=== PATIENT | female | born 1960 | race Caucasian/White ===

== ENCOUNTER → 2023-05-15 19:09 | Outpatient (REF) | payer MEDICARE, OTHER, SELFPAY | LOC: WDC 19:09 | PROVIDERS: ATTENDING PHYSICIAN Family Medicine | DX: Z12.31 Encounter for screening mammogram for malignant neoplasm of breast (principal) | CPT/HCPCS: 77063; 77067 ==

== ENCOUNTER 2023-11-23 14:45 | Emergency (ER) | payer MEDICARE, OTHER, SELFPAY ==
[2023-11-23 15:10] VITALS: BP 134/71
[2023-11-23 17:39] LABS: % Basophils 0.6 % (0-2); % Eosinophils 4.3 % (0-6); % Immature Granulocytes 0.2 % (0-0.5); % Lymphocytes 24.6 % (20.5-51.1); % Monocytes 5.3 % (1.7-9.3); Absolute Basophils 0.1 10^3/uL (0-0.2); Absolute Eosinophils 0.4 10^3/uL (0-0.7); Absolute Lymphocytes 2.3 10^3/uL (1.2-3.4); Absolute Monocytes 0.5 10^3/uL (0.1-0.6); Absolute Neutrophils 6.1 10^3/uL (1.4-6.5); Hematocrit 34.6 % (37.0-47.0); Hemoglobin 11.9 g/dL (12.0-16.0); Mean Corp Hgb Conc. 34.4 g/dL (33.0-37.0); Mean Corpuscular Hgb 29.8 pg (27.0-31.0); Mean Corpuscular Volume 86.5 fL (81.0-99.0); Mean Platelet Volume 8.6 fL (7.4-10.4); Nucleated Red Blood Cells % 0 %; Platelet Count 299 10^3/uL (130-400); Red Cell Dist. Width 13.7 % (11.5-14.5); White Blood Cell Count 9.4 10^3/uL (4.8-10.8)
[2023-11-23 17:51] LABS: ALT (SGPT) 14 U/L (0-35); AST (SGOT) 21 U/L (14-36); Albumin 4.5 g/dl (3.5-5.0); Alkaline Phosphatase 86 U/L (38-126); Blood Urea Nitrogen 10 mg/dl (7-17); Calcium 10.2 mg/dl (8.4-10.2); Carbon Dioxide 28 mmol/L (22-30); Chloride 94 mmol/L (98-107); Glucose 98 mg/dl (70-99); Potassium 4.6 mmol/L (3.5-5.1); Sodium 133 mmol/L (135-145); Total Bilirubin 0.5 mg/dl (0.2-1.3); Total Protein 6.7 g/dl (6.3-8.2); eGFR > 60.00
[2023-11-23 18:00] VITALS: BP 142/78
--- NOTE | 2023-11-23 18:15 | ED.GENMED ---
History of Present Illness
General
Chief Complaint: Skin Problem
Source: patient and spouse
Exam Limitations: none
Time Seen by Provider: 11/23/23 15:49
Nursing documentation reviewed up to this point in time: agreed with
History of Present Illness
History of Present Illness:
63-year-old female with past medical history of previous stroke Takotsubo cardiomyopathy, hypertension hyperlipidemia presenting to the emergency department today with concerns of left-sided shoulder ulceration and increasing discomfort today she
was not aware of this proceeding today. noticed it today as well. She does tend to lean on this area of her back. Denies any fevers chest pain shortness of breath or additional concerns
Past History
Past History
ED Past Medical History: HTN, Hypercholesterolemia, NIDDM, Psychiatric (Anxiety, depression) and Other (chronic back pain)
ED Past Surgical History: and Orthopedic
Social History
Tobacco: Vaping
Review of Systems
Review of Systems
Allergies reviewed?: Yes
All Other Systems: ROS reviewed and negative except as documented in HPI and ROS
Phy Exam
Physical Exam
Physical Exam:
GENERAL: Alert , in no apparent distress
EYE: pupils equal and reactive
NECK: Supple, no significant adenopathy.
ENT: o/p clr, mmm.
CARDIAC: Regular rate and rhythm .
LUNGS: Clear breath sounds bilaterally, no acute respiratory distress, no wheezes/rales/rhonchi
ABDOMEN: Soft, without focal tenderness, no r/g, no cvat
NEUROLOGICAL: Alert and oriented, no focal neuro deficits
SKIN: Shallow ulcer to the left posterior shoulder region overlying the left sided scapular roughly 5 cm in diameter and circular in shape with mild redness surrounding the area mild tenderness palpation no fluctuance or induration. No drainage.
Warm and dry, skin intact.
MUSCULOSKELETAL: No edema, well perfused.
PSYCH: Normal and appropriate interaction.
Course
Orders/Labs/Results
Orders:
Orders
11/23/23 17:29
CMP [Comprehensive Metabolic Panel] Urgent
Complete Blood Count/With Diff Urgent
11/23/23 18:15
Cephalexin Monohydrate [Keflex] 500 mg PO NOW STA
Abnormal Lab Results
11/23/23
17:29
RBC 4.00 L 10^6/uL
(4.20-5.40)
Hgb 11.9 L g/dL
(12.0-16.0)
Hct 34.6 L %
(37.0-47.0)
Sodium 133 L mmol/L
(135-145)
Chloride 94 L mmol/L
(98-107)
11/23/23 17:29
11/23/23 17:29
Vital Signs
Initial and Last Documented VS:
Initial Vital Signs
Temp Pulse Resp BP Pulse Ox
98.0 F 88 16 134/71 98
11/23/23 15:10 11/23/23 15:10 11/23/23 15:10 11/23/23 15:10 11/23/23 15:10
Last Documented Vital Signs
Temp Pulse Resp BP Pulse Ox
98.0 F 80 18 142/78 97
11/23/23 15:10 11/23/23 18:00 11/23/23 18:00 11/23/23 18:00 11/23/23 18:00
MDM/Problems Addressed
MDM/Problems Addressed:
63-year-old female presenting to the emergency department today with concerns of a shallow ulcer to the left posterior shoulder blade. This appears to be somewhat chronic with mild redness surrounding there was a possibility of early infection with
started on Keflex but otherwise no systemic symptoms no signs of significant systemic infection no white count no fever stable for outpatient management given antibiotics and return precautions given. Patient claims she has follow-up in 2 days.
*Critical Care Note
Total Time (30-74mins, 75-104mins- exclusive of procedures): Not Applicable
ED Attending Note
-
Portions of this chart may have been created with voice recognition software.� Occasional wrong word or��sound alike� substitutions may have occurred due to the inherent limitations of voice recognition software.
Discharge Plan
Departure
Patient Disposition: Home (Routine Discharge)
Date of Disposition: 11/23/23
Time of Disposition: 18:15
Patient with high blood pressure during this ER visit?: No
Condition: Good
Covid-19: Not Applicable
Discharge Problem:
Pressure ulcer, Cellulitis
Instructions: Cellulitis (Skin Infection), Adult ([place]), [facility]
Prescriptions:
New
cephalexin 500 mg capsule
500 mg PO QID 7 Days Qty: 28 0RF
No Action
atorvastatin 40 MG tablet
40 mg PO DAILY
lamotrigine 200 MG tablet
150 mg PO DAILY
cetirizine 10 MG tablet
10 mg PO DAILY
metoprolol tartrate 25 MG tablet
25 mg PO BID
lisinopril [Prinivil] 40 MG tablet
40 mg PO DAILY
amlodipine 5 MG tablet
5 mg PO DAILY Qty: 30 0RF
metformin 1,000 MG tablet
1,000 mg PO BID
clonazepam 0.5 MG tablet
0.5 mg PO BID Qty: 10 0RF
quetiapine 100 MG tablet
100 mg PO HS Qty: 30 0RF
bupropion HCl 300 MG tablet extended release 24 hr
300 mg PO DAILY Qty: 30 0RF
Rx Instructions:
NEW DOSE
duloxetine 20 MG capsule,delayed release(DR/EC)
40 mg PO DAILY Qty: 30 0RF
Referrals:
Celestine Victor DO [Family Provider] -
Activity Restrictions/Additional Instructions:
You came to the emergency department today with concerns of an ulcer to your left upper shoulder. He had reassuring labs here this could represent an early infection to a pressure ulcer. Please use the prescribed antibiotics and keep the area
clean and covered. Please follow-up very closely with the wound care clinic. Return to the emergency department any worsening, new or concerning symptoms.
Interventions
Interventions:
*Risk Screen - Suicide Last Done: 11/23/23 15:07
*General Assessment Last Done: 11/23/23 18:00
*Neglect/Abuse Screening Last Done: 11/23/23 15:07
ED- Fall Risk Assessment Last Done: 11/23/23 18:00
*ED COVID-19 Vaccine History Last Done: 11/23/23 18:00
*Nursing Disposition Last Done: 11/23/23 19:50
ED-Skin Assessment Last Done: 11/23/23 18:00
Discharge Date and Time
Print Language: KHMER
[2023-11-23] MEDS: KEFLEX 500 MG PO (18:37)
== END 2023-11-23 19:50 | disposition home or self-care (01) ==
LOC: EMR 14:45
PROVIDERS: EMERGENCY PHYSICIAN Emergency Medicine; FAMILY PHYSICIAN Family Medicine
DX: L89.899 Pressure ulcer of other site, unspecified stage (principal); L03.114 Cellulitis of left upper limb; I51.81 Takotsubo syndrome; E11.9 Type 2 diabetes mellitus without complications; I10 Essential (primary) hypertension; E78.00 Pure hypercholesterolemia, unspecified; F17.290 Nicotine dependence, other tobacco product, uncomplicated; F32.A Depression, unspecified; F41.9 Anxiety disorder, unspecified; G89.29 Other chronic pain; Z86.73 Personal history of transient ischemic attack (TIA), and cerebral infarction without residual deficits
CPT/HCPCS: 99283; 80053; 85025

== ENCOUNTER 2024-03-06 01:27 | Inpatient (IN) | payer MEDICARE, OTHER, SELFPAY ==
[2024-03-05 18:25] VITALS: BP 144/92
[2024-03-05 18:49] LABS: % Basophils 0.4 % (0-2); % Immature Granulocytes 0.5 % (0-0.5); % Lymphocytes 15.1 % (20.5-51.1); % Monocytes 4.4 % (1.7-9.3); % Neutrophils 77.6 % (42.2-75.2); Absolute Eosinophils 0.2 10^3/uL (0-0.7); Absolute Immature Granulocytes 0.1 10^3/uL (0-0.05); Absolute Lymphocytes 1.6 10^3/uL (1.2-3.4); Absolute Monocytes 0.5 10^3/uL (0.1-0.6); Hemoglobin 11.6 g/dL (12.0-16.0); Mean Corp Hgb Conc. 34.1 g/dL (33.0-37.0); Mean Corpuscular Hgb 29.9 pg (27.0-31.0); Mean Corpuscular Volume 87.6 fL (81.0-99.0); Mean Platelet Volume 8.2 fL (7.4-10.4); Nucleated Red Blood Cells % 0 %; Platelet Count 281 10^3/uL (130-400); Red Blood Cell Count 3.88 10^6/uL (4.20-5.40); Red Cell Dist. Width 13.2 % (11.5-14.5); White Blood Cell Count 10.3 10^3/uL (4.8-10.8)
[2024-03-05 19:17] LABS: ALT (SGPT) 20 U/L (0-35); AST (SGOT) 25 U/L (14-36); Alkaline Phosphatase 74 U/L (38-126); Blood Urea Nitrogen 12 mg/dl (7-17); Calcium 9.9 mg/dl (8.4-10.2); Carbon Dioxide 23 mmol/L (22-30); Chloride 89 mmol/L (98-107); Glucose 109 mg/dl (70-99); Potassium 4.6 mmol/L (3.5-5.1); Sodium 124 mmol/L (135-145); Total Bilirubin 0.4 mg/dl (0.2-1.3); Total Protein 7.4 g/dl (6.3-8.2); eGFR > 60.00
[2024-03-05 19:56] LABS: Urine Albumin 1+ (Neg - Trace); Urine Bilirubin Negative (Negative); Urine Character Clear (Clear); Urine Color Yellow; Urine Glucose Negative (Negative); Urine Ketone Negative (Negative); Urine Leukocyte Negative (Negative); Urine Nitrite Negative (Negative); Urine Occult Blood Trace (Negative); Urine Specific Gravity 1.015 (<1.030); Urine Urobilinogen Negative (Neg - 1+)
[2024-03-05 20:05] LABS: Urine Squamous Cell 0-2 /LPF (Few)
[2024-03-05 20:06] LABS: Urine Bacteria Few (Negative); Urine White Cell 0-2 /HPF (0-5)
[2024-03-05 20:52] VITALS: BP 154/80
--- NOTE | 2024-03-05 21:09 | ED.GENMED ---
History of Present Illness
General
Chief Complaint: Urinary Symptoms
Source: patient and spouse
Exam Limitations: other (Expressive Aphasia)
Time Seen by Provider: 03/05/24 20:53
History of Present Illness
History of Present Illness:
This is a 63 year old female that comes in with c/o frequent Urination. states that for the past week she has had difficulty urination. States that she goes about 10 times daily and there is very little. States that she has also been
constipated. Patient has been weak and today trying to get back form the commode she fell. States that she did not hit her head as he was with patient and it was a gently down. States that she has been very weak. Patient states that she has abd pain
in the lower abd. States that she also has a headache. Denies any fever, chills, chest pain, SOB, nausea, vomiting, diarrhea, dizziness, urinary burning.
Past History
Past History
ED Past Medical History: CVA (Left sided weakness. Left foot drop), HTN, Hypercholesterolemia, NIDDM, Psychiatric (Anxiety, depression, PTSD) and Other (chronic back pain, Migraines, Sciatica, Takotsubo cardiomyopathy, Colitis, IBS, GI bleeding,
UTI, ADHD)
ED Past Surgical History: (X 3), Gynecological (Hysterectomy) and Orthopedic (Right and left knee replacement. Right shoulder surgery, laminectomy)
Social History
Tobacco: Smoker
Alcohol: None
Personal:
Living: with family
Review of Systems
Review of Systems
All Other Systems: ROS reviewed and negative except as documented in HPI and ROS
Constitutional: Reports no symptoms; Denies fever or chills
EENT: Reports no symptoms
Respiratory: Reports no symptoms; Denies cough or trouble breathing
Cardiac: Reports no symptoms; Denies chest pain
ABD/GI: Reports abdominal pain and constipated; Denies nausea, vomiting or diarrhea
: Reports frequency and urgency; Denies dysuria
Musculoskeletal: Reports no symptoms
Skin: Reports no symptoms
Neurological: Reports headache; Denies dizzy
Psychiatric: Reports no symptoms
Phy Exam
General Physical Exam
General Presentation: no apparent distress
General age: appears stated age
General Skin: warm and dry
General Habitus: debilitated
General Mental: alert
General Hydration: appears well hydrated
ENT Exam
ENT Exam: TM's normal, pharynx normal and neck supple
Eye Exam
Eye Exam: EOMI
Cardiovascular Exam
Cardiovascular Exam: regular rate/rhythm, no edema and normal peripheral pulses
Pulmonary Exam
Pulmonary Exam: no respiratory distress, no rales, chest non tender, no crackles, no rhonchi, no cough and other (Faint exp wheezing noted)
Gastrointestinal Exam
Gastrointestinal Exam: soft, no organomegaly, no pulsatile mass, non distended, tender (Generalized tenderness with palpation) and other (Hypoactive bowel sounds)
Musculoskeletal Exam
Musculoskeletal Exam: no edema and other (Left sidee weakness with left foot drop)
Skin Exam
Skin Exam: normal color, warm/dry, no rash and no petechia
Psychiatric Exam
Psychiatric Exam: normal mood/affect
Course
Orders/Labs/Results
Orders:
Orders
03/05/24 18:39
Complete Blood Count/With Diff Urgent
Comprehensive Metabolic Panel Urgent
03/05/24 19:49
Osmolality, Random Urine Routine
Date Specimen was Collected: 03/05/24
Time Specimen was Collected: 18:31
Comment: ADD ON
Urinalysis Reflex To Culture Urgent
Date Specimen was Collected: 03/05/24
Time Specimen was Collected: 18:31
Urine Microscopic Reflex Cult Urgent
Urine Sodium Routine
Date Specimen was Collected: 03/05/24
Time Specimen was Collected: 18:31
Comment: ADD ON
03/05/24 21:08
CT Abd/pelvis W Iv Cont Urgent
Comment:
Reason For Exam: generalized abd tenderness
Bladder Scan- Treatment ONCE
03/05/24 21:21
Add On- LAB Urgent
Tests Added?: Urine Osm, urine sodium
03/05/24 21:24
Consult Nephrology [NEPHROLOGY CONSULT] Urgent
Consulting Provider: Israel Murillo
Was physician already notified: Yes
03/05/24 22:58
Gabapentin [Neurontin] 600 mg PO NOW STA
Oxycodone/Acetaminophen [Percocet 5/325] 1 tablet PO NOW STA
03/05/24 23:00
3% Sodium Chloride 250 ml [Sodium Chloride 3%] 250 ml IV ONCE
Abnormal Lab Results
03/05/24 03/05/24
18:39 19:49
RBC 3.88 L 10^6/uL
(4.20-5.40)
Hgb 11.6 L g/dL
(12.0-16.0)
Hct 34.0 L %
(37.0-47.0)
Abs Immat Gran (auto) 0.1 H 10^3/uL
(0-0.05)
Absolute Neuts (auto) 8.0 H 10^3/uL
(1.4-6.5)
Neutrophils % 77.6 H %
(42.2-75.2)
Lymphocytes % 15.1 L %
(20.5-51.1)
Sodium 124 L mmol/L
(135-145)
Chloride 89 L mmol/L
(98-107)
Glucose 109 H mg/dl
(70-99)
Ur Occult Blood Reflex Trace A
(Negative)
Urine RBC 3-6 A /HPF
(0-2)
Urine Bacteria (Reflex) Few A
(Negative)
Urine Albumin (Reflex) 1+ A
(Neg - Trace)
03/05/24 18:39
03/05/24 18:39
H/H slightly low. Hyponatremia, Chloride low. Glucose nonfasting. Urine negative for infection.
Vital Signs
Initial and Last Documented VS:
Initial Vital Signs
Temp Pulse Resp BP Pulse Ox
99.3 F 91 20 144/92 97
03/05/24 18:25 03/05/24 18:25 03/05/24 18:25 03/05/24 18:25 03/05/24 18:25
Last Documented Vital Signs
Temp Pulse Resp BP Pulse Ox
99.3 F 70 22 146/77 94
03/05/24 18:25 03/05/24 23:15 03/05/24 20:53 03/05/24 23:00 03/05/24 21:15
MDM/Problems Addressed
Differential Diagnosis Includes:
Weakness with accidental fall, Constipation
MDM/Problems Addressed:
This is a 63 year old female that comes in with c/o weakness. stats that she has need to urinate frequently. States that today she was getting back from the [employer] and she is so weak that she fell. States that he was with patient and it was
a gently fall to the ground and she did not hit her head or have any LOC. States that she has also been constipation.
Will check labs, CT abd, Get urine.
Explained to patient nd that she would be admitted as her sodium is to low. Urine is negative for infection. Will admit patient.
Chronic conditions affecting care:
CVA
Acute Exacerbation and/or Progression of Chronic Illness:
NA
*Radiology
Radiology exam reviewed: radiology read reviewed (CT-Stable peripherally calcified splenic cyst. Right-sided internal double-J nephroureteral stent in place. IN the proimal right ureter, Adjacent to the ureteral stent, there is a 7X6mmm ureteral
calculus. No hydronephrosis, Slightly distended extrarenal pelvis bilaterally. Few small right renal ) and other (CT cont- cyst. NO bladder calculus. NO bladder wall thickening. Constipation with moderate colonic fecal burden especially in the cecum
and ascending colon. NO evidence of bowel obstruction. )
*Pulse Oximetry
Patient hypoxic: no
*EKG
Interpreted by ED Provider?: NA
Rate: EKG- N/A
*Brand Protection Manager Interpretation
Rate: Brand Protection Manager- N/A
*Critical Care Note
Total Time (30-74mins, 75-104mins- exclusive of procedures): Not Applicable
ED Attending Note
-
Portions of this chart may have been created with voice recognition software.� Occasional wrong word or��sound alike� substitutions may have occurred due to the inherent limitations of voice recognition software.
Discharge Plan
Departure
Patient Disposition: Admit
Date of Disposition: 03/05/24
Time of Disposition: 23:00
Admit to: Med/Surg
Presentation/result/management discussed w/ accepting MD/DO: Hospitalist
Patient with high blood pressure during this ER visit?: Yes
Condition: Good
Covid-19: Not Applicable
Discharge Problem:
Acute hyponatremia, Constipation, Renal calculus, right
Prescriptions:
No Action
lamotrigine 200 MG tablet
200 mg PO DAILY
quetiapine 25 mg Tablet
50 mg PO HS
Rx Instructions:
take with 200mg for total of 250mg
gabapentin 600 mg Tablet
600 mg PO QID
quetiapine 200 mg Tablet
200 mg PO HS
Rx Instructions:
take with 50mg for total of 250mg
melatonin 3 mg Tablet
3 mg PO HS
oxycodone-acetaminophen 10-325 mg Tablet
1 tab PO Q6HPRN PRN (Reason: severe pain)
dextroamphetamine-amphetamine 20 mg Tablet
20 mg PO BID
hydrochlorothiazide 25 mg Tablet
25 mg PO DAILY
lisinopril 40 mg Tablet
40 mg PO DAILY
sertraline 50 mg Tablet
50 mg PO DAILY
duloxetine 30 mg Capsule,Delayed Release(Dr/Ec)
30 mg PO DAILY
clonazepam 0.5 MG tablet
0.5 mg PO TIDPRN PRN (Reason: anxiety)
methocarbamol 500 mg Tablet
500 mg PO DAILYPRN PRN (Reason: muscle spasms)
Referrals:
Celestine Victor DO [Family Provider] -
Interventions
Interventions:
*Risk Screen - Suicide Last Done: 03/05/24 18:25
*General Assessment Last Done: 03/05/24 21:45
*Neglect/Abuse Screening Last Done: 03/05/24 20:44
*ED COVID-19 Vaccine History Last Done: 03/05/24 21:45
ED-Female Genitourinary Assessment Last Done: 03/05/24 21:45
Discharge Date and Time
Print Language: PERSIAN
[2024-03-05 21:48] LABS: Osmolality Urine 379 mOsm/kg (300-900)
[2024-03-05 21:55] LABS: Urine Sodium 72 mmol/L (30-90)
[2024-03-05 22:51] VITALS: BP 147/74
[2024-03-05] MEDS: SODIUM CHLORIDE 3% 250 IV (22:53)
[2024-03-05 23:00] VITALS: BP 146/77
[2024-03-05] MEDS: NEURONTIN 600 MG PO (23:03)
[2024-03-05] MEDS: PERCOCET 5/325 1 TABLET PO (23:03)
[2024-03-05 23:47] VITALS: BP 146/83
[2024-03-06] VITALS (14 sets, daily range): BP systolic 92–142; BP diastolic 51–107
[2024-03-06] MEDS: SEROQUEL 250 MG PO (00:25)
[2024-03-06] MEDS: KLONOPIN 0.5 MG PO ×4 (00:25→22:05)
--- NOTE | 2024-03-06 00:47 | HPS.HSE ---
Family Physician
-
Family Physician: Celestine Victor
Chief Complaint
-
urinary frequency
History of Present Illness
This is a 63-year-old female with past medical history significant for hypertension, urq-xyabbyv-zbzcgygqz diabetes, hyperlipidemia, mixed bipolar disorder, history of nephrolithiasis status post stenting presents to the emergency department with
few days ago for abdominal discomfort and increased urinary frequency. She was found to be hyponatremic on arrival in the emergency department.
Patient has history of CVA with aphasia and unable to provide a very clear history. She reports that she has been having generalized abdominal pain but mostly on the right side. The pain is worse with urination but she denies dysuria. She denies
any hematuria. She has not had any nausea or vomiting. She denies fevers or chills. Patient reports that her bowel movements were once every 2 days and has been regular like that for a long time without any recent changes. She denies any
diarrhea. She denies any changes in her eating habits. She does report there is some tenderness to palpation over the right lower quadrant. While the CT scan today shows a right internal double-J nephroureterostomy stent the patient does not
recollect undergoing this procedure. She reports urinary frequency with small amount of urine each time. Denies dysuria or hematuria stated. She reports feeling weak today and she fell trying to get back from the commode. She had no head trauma.
In the ED she was afebrile, blood pressure was 137/79 with a pulse of 70 satting 94% on room air. CBC was unremarkable. Chemistries notable for a sodium of 124, BUN/creatinine were normal. Urinalysis was negative for acute infection. CT of the
abdomen was unremarkable except for a right-sided internal double-J nephroureteral stent in place. In the proximal right ureter, adjacent to the ureteral stent, there is a 7 x 6 mm ureteral calculus. No hydronephrosis; slightly distended extrarenal
pelvis, bilaterally. Few small right renal cysts. No bladder calculus. No bladder wall thickening.
Medical History
Past Medical History
Past Medical History: Reports Other
Additional Past Medical History:
CVA (Left sided weakness. Left foot drop), HTN, Hypercholesterolemia, NIDDM, Psychiatric (Anxiety, depression, PTSD) and Other (chronic back pain, Migraines, Sciatica, Takotsubo cardiomyopathy, Colitis, IBS, GI bleeding, UTI, ADHD)
Past Surgical History: Reports Other
Additional Past Surgical History:
(X 3), Gynecological (Hysterectomy) and Orthopedic (Right and left knee replacement. Right shoulder surgery, laminectomy)
Social History
Tobacco: Smoker
Alcohol: None
Drug: None
Personal:
Living: With Family
Family History
Family History: Not pertinent
Allergies / Home Medications
Allergies reflects when Allergies were last updated in [facility].
Home Medications with original date entered in [facility]
Allergy/Medication List:
Allergies
Allergy/AdvReac Type Severity Reaction Status Date / Time
sulfamethoxazole Allergy Rash Verified 03/05/24 18:24
[From Bactrim]
topiramate [From Topamax] Allergy Dizzy, Verified 03/05/24 18:24
tachycardia,
trimethoprim [From Bactrim] Allergy Rash Verified 03/05/24 18:24
Home Medications
lamotrigine 200 mg tablet 200 mg PO DAILY MOOD STABILIZATION 01/17/21
clonazepam 0.5 mg tablet 0.5 mg PO TIDPRN PRN anxiety 03/05/24
dextroamphetamine-amphetamine 20 mg tablet 20 mg PO BID 03/05/24
duloxetine 30 mg capsule,delayed release 30 mg PO DAILY 03/05/24
gabapentin 600 mg tablet 600 mg PO QID 03/05/24
hydrochlorothiazide 25 mg tablet 25 mg PO DAILY 03/05/24
lisinopril 40 mg tablet 40 mg PO DAILY 03/05/24
melatonin 3 mg tablet 3 mg PO HS 03/05/24
methocarbamol 500 mg tablet 500 mg PO DAILYPRN PRN muscle spasms 03/05/24
oxycodone-acetaminophen 10 mg-325 mg tablet 1 tab PO Q6HPRN PRN severe pain 03/05/24
quetiapine 200 mg tablet 200 mg PO HS 03/05/24
quetiapine 25 mg tablet 50 mg PO HS 03/05/24
sertraline 50 mg tablet 50 mg PO DAILY 03/05/24
Review of Systems
-
History Source: Patient
Constitutional: Reports No Symptoms
EENT: Reports No Symptoms
Respiratory: Reports No Symptoms
Cardiac: Reports No Symptoms
Abdomen/GI: Reports Abdominal Pain
: Reports Frequency
Musculoskeletal: Reports No Symptoms
Skin: Reports No Symptoms
Neurological: Reports No Symptoms
Endocrine: Reports No Symptoms
Hematologic/Lymphatic: Reports No Symptoms
Psych: Reports No Symptoms
Physical Exam
Vital Signs
Vital Signs
Temp Pulse Resp BP Pulse Ox
99.3 F 70 22 137/79 94
03/05/24 18:25 03/06/24 00:00 03/05/24 20:53 03/06/24 00:00 03/05/24 21:15
Physical Exam
General: Well Developed, Well Nourished, No Apparent Distress and Comfortable
HEENT: NormoCephalic, Anicteric, Moist mucous membranes and Atraumatic
Respiratory: Clear
Cardiac: S1/S2 and Regular Rhythm
Breast: Deferred by me
GI: Soft, Non Distended, Normal Bowel Sounds and Tender
Rectal: Deferred by Provider
Genito-urinary: Deferred by me
Musculoskeletal: No Clubbing, No Cyanosis and No Edema
Neuro: AO x 3, Slurred Speech and Facial Droop
Hematologic/Lymphatic: No Lymphadenopathy
Psych: Calm
Laboratory Results
-
03/05/24 18:39
03/05/24 18:39
Laboratory Results
Total Bilirubin 0.4 mg/dl (0.2-1.3) 03/05/24 18:39
AST 25 U/L (14-36) 03/05/24 18:39
ALT 20 U/L (0-35) 03/05/24 18:39
Alkaline Phosphatase 74 U/L (38-126) 03/05/24 18:39
Data Reviewed
-
CT Scan: Report Reviewed by me
Lab Data: Labs Reviewed by me
Old Records: Reviewed
Impression/Plan
-
IMPRESSION:
63 y.o female with multiple commorbidities presents with abdominal discomfort and urinary frequency, found to have sodium of 124 and some weakness.
PLAN:
1. Hyponatremia - She is euvolemic and normotensive. UOsm 390 and Jyotsna 72 c/w SIADH. Suspect medication induced. Appears to have been decreasing since november.
- admit to IMU
- started hypertonic saline in ED, continue for now
- fluid restriction
- check am cortisol and tsh
- hold hctz, sertraline for now
- check orthostatics
- nephrology consultation.
2. Abdominal pain - Unclear etiology of symptoms. No signs of infection. Possible R renal colic. Stent in place with adjacent proximal stone. No hydronephrosis. No peritonitis. No diarrhea and deniesIBS/IBD
- pain control,
- tamsulosin
- consider urology consultation
Continue other medications per home regimen
DVT PPX - lovenox sq
Code status - full code
[2024-03-06 05:50] LABS: Hematocrit 30.1 % (37.0-47.0); Hemoglobin 9.8 g/dL (12.0-16.0); Mean Corp Hgb Conc. 32.6 g/dL (33.0-37.0); Mean Corpuscular Hgb 29.6 pg (27.0-31.0); Mean Corpuscular Volume 90.9 fL (81.0-99.0); Platelet Count 223 10^3/uL (130-400); Red Blood Cell Count 3.31 10^6/uL (4.20-5.40); Red Cell Dist. Width 13.2 % (11.5-14.5); White Blood Cell Count 7.7 10^3/uL (4.8-10.8)
[2024-03-06 05:54] LABS: Blood Urea Nitrogen 10 mg/dl (7-17); Calcium 9.2 mg/dl (8.4-10.2); Carbon Dioxide 24 mmol/L (22-30); Chloride 94 mmol/L (98-107); Estimated Creatinine Clearance 90 ml/min; Glucose 103 mg/dl (70-99); Sodium 126 mmol/L (135-145); eGFR > 60.00
[2024-03-06 06:21] LABS: Cortisol, Random 2.1 ug/dl; TSH Reflex To Free T4 0.69 uIU/ml (0.47-4.68)
[2024-03-06 08:46] LABS: Iron 55 ug/dl (37-170)
[2024-03-06 08:55] LABS: Percent Saturation 18 % (20-50); Total Iron Binding Capacity 302 ug/dl (265-497)
[2024-03-06] MEDS: CYMBALTA DELAYED RELEASE 30 MG PO (08:56)
[2024-03-06] MEDS: ADDERALL 20 MG PO ×2 (09:02→15:47)
[2024-03-06] MEDS: ZESTRIL 40 MG PO (09:05)
[2024-03-06] MEDS: LAMICTAL 200 MG PO (09:05)
[2024-03-06] MEDS: NEURONTIN 600 MG PO ×4 (09:05→19:57)
[2024-03-06] MEDS: MIRALAX 17 GRAMS PO (09:06)
[2024-03-06] MEDS: MILK OF MAGNESIA 30 ML PO (09:06)
[2024-03-06] MEDS: COLACE 100 MG PO ×2 (09:06→19:57)
[2024-03-06] MEDS: FLOMAX 0.4 MG PO (09:06)
[2024-03-06 09:11] LABS: Ferritin 29.9 ng/ml (11.1-264.0)
[2024-03-06] MEDS: ROXICODONE 5 MG PO ×2 (09:16→18:29)
[2024-03-06 09:25] LABS: Vitamin B12 359 pg/ml (239-931)
[2024-03-06 10:12] LABS: ACTH Stim Cortisol 0 Min 10.8 ug/dl
[2024-03-06] MEDS: CORTROSYN 0.25 MG IV (10:25)
[2024-03-06] MEDS: NSS (PRESERVATIVE FREE) 1 ML IV (10:26)
--- NOTE | 2024-03-06 10:36 | W.CON.NEPH ---
Consultation
-
Date/Time Consultation Requested: 03/05/242123
Date/Time Consultation Performed: 03/06/24 1045
Requesting Provider: Alexsandra Mathis
Performing Provider: Marlena Flowers
Reason for Consultation: Hyponatremia
Medical History
-
Chief Complaint: U frequency
History of Present Illness:
63-year-old female with past medical history significant for hypertension , hydrochlorothiazide, lisinopril, jxz-xrwcxmc-xbwfziwrz diabetes, hyperlipidemia, mixed bipolar disorder On Seroquel, sertraline, methotrexate 10, duloxetine, Adderall,
clonazepam when necessary, gabapentin, history of nephrolithiasis status post stenting presents to the emergency department with few days ago for abdominal discomfort and increased urinary frequency. She was found to be hyponatremic on arrival in
the emergency department sodium at 124.
Due to her previous stroke has difficulty to talk and provide a history. What she reports to have generalized abdominal pain on the right side. No nausea or vomiting. Notes to have dysuria without hematuria. No history of diarrhea. No fevers.
On the CT scan in the ER showed right double-J stent nephroureteral stent, In the proximal right ureter, adjacent to the ureteral stent, there is a 7 x 6 mm ureteral calculus, no hydronephrosis. History is very limited currently.
She was started on the hypertonic saline and sodium improved to 126 this morning. She denies any dizziness.
Past Medical History
CVA (Left sided weakness. Left foot drop), HTN, Hypercholesterolemia, NIDDM, Psychiatric (Anxiety, depression, PTSD) and Other (chronic back pain, Migraines, Sciatica, Takotsubo cardiomyopathy, Colitis, IBS, GI bleeding, UTI, ADHD)
Past Surgical History: Other ( (X 3), Gynecological (Hysterectomy) and Orthopedic (Right and left knee replacement. Right shoulder surgery, laminectomy))
Social History
Tobacco: Smoker
Alcohol: None
Drug: None
Personal:
Living: With Family
Family History
Family History: Not Pertinent
Allergies / Home Medications
Allergy/AdvReac Type Severity Reaction Status Date / Time
sulfamethoxazole Allergy Rash Verified 03/05/24 18:24
[From Bactrim]
topiramate [From Topamax] Allergy Dizzy, Verified 03/05/24 18:24
tachycardia,
trimethoprim [From Bactrim] Allergy Rash Verified 03/05/24 18:24
�Medication �Instructions �Recorded �Confirmed �Type
lamotrigine 200 mg tablet 200 mg PO DAILY MOOD STABILIZATION 01/17/21 03/05/24 History
clonazepam 0.5 mg tablet 0.5 mg PO TIDPRN PRN anxiety 03/05/24 03/05/24 History
dextroamphetamine-amphetamine 20 20 mg PO BID 03/05/24 03/05/24 History
mg tablet
duloxetine 30 mg capsule,delayed 30 mg PO DAILY 03/05/24 03/05/24 History
release
gabapentin 600 mg tablet 600 mg PO QID 03/05/24 03/05/24 History
hydrochlorothiazide 25 mg tablet 25 mg PO DAILY 03/05/24 03/05/24 History
lisinopril 40 mg tablet 40 mg PO DAILY 03/05/24 03/05/24 History
melatonin 3 mg tablet 3 mg PO HS 03/05/24 03/05/24 History
methocarbamol 500 mg tablet 500 mg PO DAILYPRN PRN muscle 03/05/24 03/05/24 History
spasms
oxycodone-acetaminophen 10 mg-325 1 tab PO Q6HPRN PRN severe pain 03/05/24 03/05/24 History
mg tablet
quetiapine 200 mg tablet 200 mg PO HS 03/05/24 03/05/24 History
quetiapine 25 mg tablet 50 mg PO HS 03/05/24 03/05/24 History
sertraline 50 mg tablet 50 mg PO DAILY 03/05/24 03/05/24 History
Review of Systems
-
Difficult to up-to-date, limited history with dysarthria and history of stroke
Physical Exam
Vital Signs
Vital Signs
Temp Pulse Resp BP Pulse Ox
99.3 F 72 22 112/91 92
03/05/24 18:25 03/06/24 09:05 03/05/24 20:53 03/06/24 09:05 03/06/24 05:15
Lab Results
WBC 7.7 10^3/uL (4.8-10.8) 03/06/24 05:08
RBC 3.31 10^6/uL (4.20-5.40) L 03/06/24 05:08
Hgb 9.8 g/dL (12.0-16.0) L 03/06/24 05:08
Hct 30.1 % (37.0-47.0) L 03/06/24 05:08
Plt Count 223 10^3/uL (130-400) D 03/06/24 05:08
Sodium 126 mmol/L (135-145) L 03/06/24 05:08
Potassium 4.0 mmol/L (3.5-5.1) 03/06/24 05:08
Chloride 94 mmol/L (98-107) L 03/06/24 05:08
Carbon Dioxide 24 mmol/L (22-30) 03/06/24 05:08
BUN 10 mg/dl (7-17) 03/06/24 05:08
Creatinine 0.7 mg/dL (0.6-1.0) 03/06/24 05:08
eGFR > 60.00 03/06/24 05:08
Glucose 103 mg/dl (70-99) H 03/06/24 05:08
Calcium 9.2 mg/dl (8.4-10.2) 03/06/24 05:08
Albumin 5.0 g/dl (3.5-5.0) 03/05/24 18:39
CT abd with IV contrastL:
IMPRESSION:
Stable peripherally calcified splenic cyst.
Right-sided internal double-J nephroureteral stent in place. In the proximal right ureter, adjacent to the ureteral stent, there is a 7 x 6 mm ureteral calculus. No hydronephrosis; slightly distended extrarenal pelvis, bilaterally. Few small right
renal cysts. No bladder calculus. No bladder wall thickening.
Constipation with moderate colonic fecal burden especially in the cecum and ascending colon. No evidence of bowel obstruction.
Physical Exam
General: Awake, Alert, Oriented, No Distress and Nontoxic
HEENT: EOMI and Anicteric
Respiratory: Clear, Normal Excursion and Nonlabored Respirations
Cardiac: S1/S2 and Regular Rate/Rhythm
Breast: Deferred by me
Abdomen: Soft and Nontender
Musculoskeletal: No Cyanosis and No Edema (trace)
Skin: No Rash
Neuro: Other ( left hemiparesis)
Psych: Appropriate
Data Reviewed
-
Radiology: Report Reviewed by me and Discussed with Patient
Labs: Labs Reviewed by me, Discussed with Nurse and Discussed with Patient
Assessment/Plan
-
IMP:
Hyponatremia
Abdominal pain
U stent with h/o K stone
CVA (Left sided weakness. Left foot drop)
HTN
Hypercholesterolemia
NIDDM
Anxiety, depression, PTSD, ADHD
chronic back pain
Migraines,
Takotsubo cardiomyopathy
IBS,
h/o GI bleeding
Plan:
A/w dysuria, h/o U stent, no UTI noted
U om high 379, U na 72-possible euvolemic
was on HCTZ, SSRI and duloxetine
maintain FR 48 ounces/day
cortisol low -check ACTH stim test
BP improving - holding parameters with meds
not resume HCTZ in future
follow labs later today
Goal of correction 68 mEq per day
Discussed with the patient and nursing
--- NOTE | 2024-03-06 11:38 | VATNOTE ---
Cortrosyn stimulation study completed as ordered.
[2024-03-06 12:38] LABS: ACTH Stim Cortisol 60 Min 33.5 ug/dl
--- NOTE | 2024-03-06 12:53 | W.PN.HOSP.TC ---
Addendum entered and electronically signed by Hermann Kay MD 03/06/24 14:14:
Correction patient had wheezes on exam. Will check chest x-ray
Original Note:
Today's Communication/Plan
-
Follow sodium
Urology opinion for the stent
PT OT
Assessment / Plan
Assessment / Plan
63-year-old female presented to the hospital with urinary frequency. 10-12 times a day. and she was really weak. She needs help normally to get around the house with 's help. She was very very weak.
CT abdomen and [id number]-stable peripherally calcified splenic cyst. Right-sided internal double-J stent. The right proximal ureter adjacent to the ureteral stent there is a 7 x 6 mm ureteral calculus. No hydronephrosis. Slightly distended
extrarenal pelvis bilaterally. Few small right renal cyst. No bladder calculus. Constipation with moderate colonic fecal burden
Awake and alert
Patient has dysphagia and not able to communicate well
Cardiovascular system S1-S2 appreciated
Chest clear to auscultation
Abdomen mild lower quadrant discomfort and tenderness
Left-sided hemiparesis
No lower extremity edema
# Hyponatremia
Urine osmolality 390 and sodium 72 consistent with SIADH
Possibly secondary to medicines
Started hypertonic saline in the ER
Normal TSH.
Low cortisol-check cortisol stimulation test
Fluid restriction
Hold hydrochlorothiazide and sertraline
Nephrology evaluation requested
# Abdominal pain with urinary stent
Possibly pain is secondary to constipation. Treat constipation
Details of right sided - stent unclear
not sure either.
She was at [facility] a year ago . But she doesn't know is if she had the stent placed then.
No evidence of UTI per urine analysis
Continue tamsulosin
Urology evaluation
# Bipolar disease/PTSD/anxiety/ADHD-on duloxetine, Lamictal, quetiapine and sertraline as outpatient
Hold sertraline
Continue Klonopin 0.5 mg 3 times daily as needed
# Constipation-Bowels regimen
# Hypertension. Do not restart hydrochlorothiazide. Continue lisinopril
# History of diabetes-diet controlled. Accu-Cheks and sliding scale coverage
# Chronic anemia-low normal iron and [id number]-[id number]
# Low cortisol level. Check cortisol stimulation test.
# Sciatica
# Migraines
# History of CVA -with left-sided weakness
# History of Takotsubo cardiomyopathy- No echo here.
# IBS
# History of GI bleed
# DVT prophylaxis-Lovenox
# DNR per discussion with
Discussed with nursing
Discussed with
D/W Urology.
Time spent over 50 min
Anticipated Discharge: > 48 hours
Subjective/Interval History
-
Date of Service: March 06, 2024
Objective Data
-
Labs:
Laboratory Results
03/06/24
05:08
WBC 7.7
Hgb 9.8 L
Hct 30.1 L
Plt Count 223 D
Sodium 126 L
Potassium 4.0
Chloride 94 L
Carbon Dioxide 24
BUN 10
Creatinine 0.7
Glucose 103 H
Calcium 9.2
Vital Signs:
Vital Signs
Temp Pulse Resp BP Pulse Ox
98.4 F 82 22 114/84 94
03/06/24 11:37 03/06/24 11:30 03/05/24 20:53 03/06/24 10:00 03/06/24 10:00
I&O
03/05/24 03/06/24 03/07/24
06:59 06:59 06:59
Intake Total 160 / 160
Balance 160 / 160
[2024-03-06 13:02] LABS: ACTH Stim Cortisol 30 Min 27.6 ug/dl
[2024-03-06] MEDS: SENOKOT 17.2 MG PO ×2 (13:13→19:57)
[2024-03-06] MEDS: FEOSOL 325 MG PO (13:17)
--- NOTE | 2024-03-06 13:17 | CONS.URO ---
Consultation
-
Date/Time Consultation Performed: 03/07/24918
Requesting Provider: Bebeto Kay
Performing Provider: Gilles
Medical History
History of Present Illness
63 presented to the emergency department yesterday with abdominal discomfort and increased urinary frequency. She was found to be hyponatremic on arrival.
CT scan demonstrates a right JJ ureteral stent.
patient cannot recall when/where/by whom right ureteral stent was placed
Past Medical History
Past Medical History: Other (hypertension, pyb-kmifvbm-jviwqducn diabetes, hyperlipidemia, mixed bipolar disorder, history of nephrolithiasis status post stenting )
Past Surgical History: Urological (Right Ureteroscopy 2019 [Gilles, ]; Right Ureteral Stenting at [facility] -- when and by whom is unremembered) and Other
Allergies/Home Medications
Allergies
Allergy/AdvReac Type Severity Reaction Status Date / Time
sulfamethoxazole Allergy Rash Verified 03/05/24 18:24
[From Bactrim]
topiramate [From Topamax] Allergy Dizzy, Verified 03/05/24 18:24
tachycardia,
trimethoprim [From Bactrim] Allergy Rash Verified 03/05/24 18:24
Home Medications
�Medication �Instructions �Recorded �Confirmed �Type
lamotrigine 200 mg tablet 200 mg PO DAILY MOOD STABILIZATION 01/17/21 03/05/24 History
clonazepam 0.5 mg tablet 0.5 mg PO TIDPRN PRN anxiety 03/05/24 03/05/24 History
dextroamphetamine-amphetamine 20 20 mg PO BID Neurological Condition 03/05/24 03/05/24 History
mg tablet
duloxetine 30 mg capsule,delayed 30 mg PO DAILY Mental Health 03/05/24 03/05/24 History
release
gabapentin 600 mg tablet 600 mg PO QID Pain 03/05/24 03/05/24 History
hydrochlorothiazide 25 mg tablet 25 mg PO DAILY Blood Pressure 03/05/24 03/05/24 History
lisinopril 40 mg tablet 40 mg PO DAILY Blood Pressure 03/05/24 03/05/24 History
melatonin 3 mg tablet 3 mg PO HS Sleep 03/05/24 03/05/24 History
methocarbamol 500 mg tablet 500 mg PO DAILYPRN PRN muscle 03/05/24 03/05/24 History
spasms
oxycodone-acetaminophen 10 mg-325 1 tab PO Q6HPRN PRN severe pain 03/05/24 03/05/24 History
mg tablet
quetiapine 200 mg tablet 200 mg PO HS Neurological Condition 03/05/24 03/05/24 History
quetiapine 25 mg tablet 50 mg PO HS Neurological Condition 03/05/24 03/05/24 History
sertraline 50 mg tablet 50 mg PO DAILY Mental Health 03/05/24 03/05/24 History
Physical Exam
Vital Signs
Vital Signs
Temp Pulse Resp BP Pulse Ox
98.4 F 82 22 114/84 94
03/06/24 11:37 03/06/24 11:30 03/05/24 20:53 03/06/24 10:00 03/06/24 10:00
Lab / Testing Results
Laboratory Results
03/06/24 05:08
03/06/24 05:08
Physical Exam
adult female on ED [facility]
eating
conversant -- abnormal speech pattern
Assessment / Plan
-
Retained Right Ureteral Stent -- details are currently unknown
Urinary Frequency -- not unexpected in presence of chronic ureteral stent
Hyponatremia of non-urologic origin
Rec:
there is no urgency to remove right ureteral stent -- she can return to [facility] for it removal
Data Reviewed
-
CT Scan: Image personally visualized and interpreted
Old Records: Requested
[2024-03-06] MEDS: VITAMIN B-12 1000 MCG PO (15:47)
[2024-03-06 16:56] LABS: Sodium 128 mmol/L (135-145)
[2024-03-06] MEDS: LOVENOX 40 MG SC (18:25)
[2024-03-06] MEDS: SEROQUEL 200 MG PO (21:00)
[2024-03-06] MEDS: SEROQUEL 50 MG PO (21:00)
[2024-03-07] VITALS (10 sets, daily range): BP systolic 91–146; BP diastolic 49–91; BMI 32.6
[2024-03-07] MEDS: ROXICODONE 5 MG PO ×3 (06:14→20:29)
[2024-03-07 06:33] LABS: Blood Urea Nitrogen 11 mg/dl (7-17); Calcium 9.1 mg/dl (8.4-10.2); Carbon Dioxide 29 mmol/L (22-30); Chloride 95 mmol/L (98-107); Estimated Creatinine Clearance 79 ml/min; Glucose 98 mg/dl (70-99); Potassium 4.2 mmol/L (3.5-5.1); Sodium 131 mmol/L (135-145); eGFR > 60.00
[2024-03-07] MEDS: ZESTRIL 40 MG PO (09:00)
[2024-03-07] MEDS: SENOKOT 17.2 MG PO ×2 (09:00→20:30)
[2024-03-07] MEDS: ADDERALL 20 MG PO ×2 (09:02→15:07)
[2024-03-07] MEDS: NEURONTIN 600 MG PO ×4 (09:02→22:08)
[2024-03-07] MEDS: LAMICTAL 200 MG PO (09:02)
[2024-03-07] MEDS: CYMBALTA DELAYED RELEASE 30 MG PO (09:02)
[2024-03-07] MEDS: VITAMIN B-12 1000 MCG PO (09:03)
[2024-03-07] MEDS: FLOMAX 0.4 MG PO (09:03)
[2024-03-07] MEDS: FEOSOL 325 MG PO (09:03)
[2024-03-07] MEDS: COLACE 100 MG PO ×2 (09:03→20:30)
[2024-03-07] MEDS: KLONOPIN 0.5 MG PO ×2 (13:19→22:48)
--- NOTE | 2024-03-07 14:13 | W.PN.HOSP.TC ---
Today's Communication/Plan
-
Mag citrate
PT OT
Rehab placement.
Assessment / Plan
Assessment / Plan
63-year-old female presented to the hospital with urinary frequency. 10-12 times a day. and she was really weak. She needs help normally to get around the house with 's help. She was very very weak.
CT abdomen and [id number]-stable peripherally calcified splenic cyst. Right-sided internal double-J stent. The right proximal ureter adjacent to the ureteral stent there is a 7 x 6 mm ureteral calculus. No hydronephrosis. Slightly distended
extrarenal pelvis bilaterally. Few small right renal cyst. No bladder calculus. Constipation with moderate colonic fecal burden
Awake and alert
Patient has dysphagia and not able to communicate well
Cardiovascular system S1-S2 appreciated
Chest clear to auscultation
Abdomen mild lower quadrant discomfort and tenderness
Left-sided hemiparesis
No lower extremity edema
# Hyponatremia
Urine osmolality 390 and sodium 72 consistent with SIADH
Possibly secondary to medicines
Started hypertonic saline in the ER
Normal TSH.
Low cortisol-check cortisol stimulation test
Fluid restriction
Hold hydrochlorothiazide and sertraline
Nephrology evaluation requested
# Abdominal pain with urinary stent
Possibly pain is secondary to constipation. Treat constipation
Details of right sided - stent unclear.
not sure either.
She was at [facility] a year ago . But she doesn't know is if she had the stent placed then.
No evidence of UTI per urine analysis
Continue tamsulosin
Urology evaluation appreciated. Patient to follow-up with [facility]
# Bipolar disease/PTSD/anxiety/ADHD-on duloxetine, Lamictal, Quetiapine and Sertraline as outpatient
Hold sertraline
Continue Klonopin 0.5 mg 3 times daily as needed
# Constipation-Bowels regimen , mag citrate
# Hypertension. Do not restart hydrochlorothiazide. Continue lisinopril
# History of diabetes-diet controlled. Accu-Cheks and sliding scale coverage
# Chronic anemia-low normal iron and [id number]
# Low cortisol level. Cortisol stim test unremarkable
# Sciatica
# Migraines
# History of CVA - with left-sided weakness
# History of Takotsubo cardiomyopathy- No echo here.
# IBS
# History of GI bleed
# DVT prophylaxis-Lovenox
# DNR per discussion with
Discussed with nursing
Discussed with
He will bring the brace in.
He expressed interest in patient going to rehab. We discussed that she needs to have PT OT and then case repairer has to make referrals. He is interested in her going to [facility].
Anticipated Discharge: 24 - 48 hours
Subjective/Interval History
-
Date of Service: March 07, 2024
Objective Data
-
Labs:
Laboratory Results
03/07/24
05:02
Sodium 131 L
Potassium 4.2
Chloride 95 L
Carbon Dioxide 29
BUN 11
Creatinine 0.8
Glucose 98
Calcium 9.1
Vital Signs:
Vital Signs
Temp Pulse Resp BP Pulse Ox
98.5 F 93 22 103/49 96
03/07/24 11:17 03/07/24 10:00 03/05/24 20:53 03/07/24 09:01 03/06/24 22:13
I&O
03/06/24 03/07/24 03/08/24
06:59 06:59 06:59
Intake Total 160 / 160 120 / 120
Output Total 900 / 900
Balance 160 / 160 -900 / -900 120 / 120
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
[2024-03-07] MEDS: LASIX 20 MG PO (15:07)
[2024-03-07] MEDS: CITROMA 300 ML PO (15:07)
--- NOTE | 2024-03-07 15:57 | W.PN.NEPH.PH ---
Today's Communication / Plan
-
check BNP ,consider lasix
Assessment/Plan
-
IMP:
Hyponatremia
Abdominal pain
U stent with h/o K stone
CVA (Left sided weakness. Left foot drop)
HTN
Hypercholesterolemia
NIDDM
Anxiety, depression, PTSD, ADHD
chronic back pain
Migraines,
Takotsubo cardiomyopathy
IBS,
h/o GI bleeding
Plan:
A/w dysuria, h/o U stent, no UTI noted
U om high 379, U na 72 unclear if SIADH
was on HCTZ, SSRI and duloxetine
sodium better to 131 with HTS, maintain FR 48 ounces/day
cortisol low -good response with ACTH stim test
BP improving - holding parameters with meds
not resume HCTZ in future, off Sertraline currently
CXR Noted mild pulm edema-check BNP , can dose lasix as she is off HCTZ
follow h/h-decreasing
Discussed with the patient and nursing
-
-
Date of Service: March 07, 2024
CC / HPI / ROS
-
Chief Complaint:
hyponatremia
History of Present Illness:
sodium better at 131
bp stable, working on constipation
no fever , CXR shwos mild pulm edema on RA
Review of Systems:
no n/v
no cp or sob at rest
Labs
-
Labs:
WBC 7.7 10^3/uL (4.8-10.8) 03/06/24 05:08
RBC 3.31 10^6/uL (4.20-5.40) L 03/06/24 05:08
Hgb 9.8 g/dL (12.0-16.0) L 03/06/24 05:08
Hct 30.1 % (37.0-47.0) L 03/06/24 05:08
Plt Count 223 10^3/uL (130-400) D 03/06/24 05:08
Sodium 131 mmol/L (135-145) L 03/07/24 05:02
Potassium 4.2 mmol/L (3.5-5.1) 03/07/24 05:02
Chloride 95 mmol/L (98-107) L 03/07/24 05:02
Carbon Dioxide 29 mmol/L (22-30) 03/07/24 05:02
BUN 11 mg/dl (7-17) 03/07/24 05:02
Creatinine 0.8 mg/dL (0.6-1.0) 03/07/24 05:02
eGFR > 60.00 03/07/24 05:02
Glucose 98 mg/dl (70-99) 03/07/24 05:02
Calcium 9.1 mg/dl (8.4-10.2) 03/07/24 05:02
Albumin 5.0 g/dl (3.5-5.0) 03/05/24 18:39
Physical Exam
-
Vital Signs:
Vital Signs
Temp Pulse Resp BP Pulse Ox
98.7 F 93 22 103/49 96
03/07/24 15:08 03/07/24 10:00 03/05/24 20:53 03/07/24 09:01 03/06/24 22:13
Cardiovascular:: Regular rate and rhythm
Respiratory:: Bilateral: Rhonchi (minimal)
Lung Excursion:: Normal
Abdomen:: Nontender and Soft
Extremity Edema:: None: Bilateral:
Alonso Catheter: No
[2024-03-07 17:11] LABS: NT-proBNP 28.3 pg/ml
--- NOTE | 2024-03-07 17:13 | PTCARENOTE ---
pt arrived on , was pulled over from stretcher to bed, VS WNL, oriented to unit, call [facility] within reach. will continue to monitor.
[2024-03-07] MEDS: NICODERM TRANSDERMAL 14 MG TRANSDERM (18:15)
[2024-03-07] MEDS: LOVENOX 40 MG SC (18:17)
[2024-03-07] MEDS: SEROQUEL 200 MG PO (22:07)
[2024-03-07] MEDS: SEROQUEL 50 MG PO (22:08)
[2024-03-07] MEDS: DESENEX/MITRAZOL/ZEASORB 1 APPLIC TOPICAL (22:09)
[2024-03-08] VITALS (9 sets, daily range): BP systolic 85–153; BP diastolic 47–68; PULSE 90
--- NOTE | 2024-03-08 06:57 | W.PN.URO.CBU ---
Today's Communication / Plan
-
Rec:
there is no urgency to remove right ureteral stent -- she can return to [facility] for it removal
Assessment / Plan
-
Retained Right Ureteral Stent -- details are currently unknown
Urinary Frequency -- not unexpected in presence of chronic ureteral stent
Hyponatremia of non-urologic origin
Diagnosis
-
Date of Service: March 08, 2024
-
Patient Diagnosis:
Retained Right Ureteral Stent -- details are currently unknown
Urinary Frequency -- not unexpected in presence of chronic ureteral stent
Hyponatremia of non-urologic origin
Objective
-
Vital Signs
Temp Pulse Resp BP Pulse Ox
97.3 F 76 16 107/63 95
03/08/24 03:27 03/08/24 05:07 03/08/24 03:27 03/08/24 05:07 03/08/24 03:27
Intake and Output
03/06/24 03/07/24 03/08/24
06:59 06:59 06:59
Intake Total 160 / 160 240 / 240
Output Total 900 / 900 1150 / 1150
Balance 160 / 160 -900 / -900 -910 / -910
Intake:
Oral fluids 240 / 240
IV fluids (Total) 160 / 160
3% Sodium Chloride 160 / 160
Output:
Urine, Voided 900 / 900 1150 / 1150
Other:
Number of unmeasured voidings 1
Number of approximated MODERATE 1
amounts of urine
How many times incontinent 1
MODERATE amount urine
How many times incontinent 1
SATURATED amount urine
Laboratory Results
03/06/24 05:08
03/07/24 05:02
urine cx: normal
Physical Exam
-
General - well developed, well nourished, no acute distress
Chest - clear bilaterally
Abdomen - soft, non-tender, positive bowel sounds, no CVAT, no incisional pain or distention
Genitalia - normal
Rectal - normal
Skin - warm & dry with no rash
Neuro - AOx3, no motor deficits
Extremities - no clubbing, no cyanosis, no edema
Incision - clean, dry
Dressing - clean, dry, intact
[2024-03-08] MEDS: NEURONTIN 600 MG PO ×4 (08:34→22:06)
[2024-03-08] MEDS: FEOSOL 325 MG PO (08:34)
[2024-03-08] MEDS: ADDERALL 20 MG PO ×2 (08:34→15:54)
[2024-03-08] MEDS: FLOMAX 0.4 MG PO (08:34)
[2024-03-08] MEDS: LAMICTAL 200 MG PO (08:34)
[2024-03-08] MEDS: COLACE PO ×2 (08:35→19:45)
[2024-03-08] MEDS: NICODERM TRANSDERMAL 14 MG TRANSDERM (08:39)
[2024-03-08] MEDS: DESENEX/MITRAZOL/ZEASORB 1 APPLIC TOPICAL ×2 (08:39→19:48)
[2024-03-08] MEDS: CYMBALTA DELAYED RELEASE 30 MG PO (08:39)
[2024-03-08] MEDS: VITAMIN B-12 1000 MCG PO (08:39)
[2024-03-08] MEDS: ZESTRIL PO (08:40)
[2024-03-08] MEDS: SENOKOT PO ×2 (08:42→19:46)
[2024-03-08 10:15] LABS: Blood Urea Nitrogen 14 mg/dl (7-17); Calcium 9.9 mg/dl (8.4-10.2); Carbon Dioxide 26 mmol/L (22-30); Chloride 96 mmol/L (98-107); Estimated Creatinine Clearance 63 ml/min; Glucose 174 mg/dl (70-99); Potassium 4.3 mmol/L (3.5-5.1); Sodium 136 mmol/L (135-145); eGFR > 60.00
[2024-03-08 14:32] LABS: Protein/creatinine Ratio 0.7; Urine Protein 70 mg/dl
--- NOTE | 2024-03-08 14:43 | PTCARENOTE ---
Nephrology ordered Protein/ Creat analysis on pt. urine. Pt. incontinent of urine, recieved order from MD to straight cath pt. Pt. straight cathed with no difficulty and sample sent to lab.
[2024-03-08] MEDS: ROXICODONE 5 MG PO ×2 (15:08→22:21)
--- NOTE | 2024-03-08 15:37 | W.PN.HOSP.TC ---
Today's Communication/Plan
-
OK for discharge to rehab
Assessment / Plan
Assessment / Plan
63-year-old female presented to the hospital with urinary frequency. 10-12 times a day. and she was really weak. She needs help normally to get around the house with 's help. She was very very weak.
CT abdomen and [id number]-stable peripherally calcified splenic cyst. Right-sided internal double-J stent. The right proximal ureter adjacent to the ureteral stent there is a 7 x 6 mm ureteral calculus. No hydronephrosis. Slightly distended
extrarenal pelvis bilaterally. Few small right renal cyst. No bladder calculus. Constipation with moderate colonic fecal burden
Awake and alert
Patient has dysphagia and not able to communicate well
Cardiovascular system S1-S2 appreciated
Chest clear to auscultation
Abdomen mild lower quadrant discomfort and tenderness
Left-sided hemiparesis
No lower extremity edema
# Hyponatremia
Urine osmolality 390 and sodium 72 consistent with SIADH
Possibly secondary to medicines
Started hypertonic saline in the ER
Normal TSH.
Low cortisol-check cortisol stimulation test
Fluid restriction
Hold hydrochlorothiazide and restart sertraline
Nephrology following
# Abdominal pain with urinary stent
Possibly pain is secondary to constipation. Treat constipation
Details of right sided - stent unclear.
not sure either.
She was at [facility] a year ago . But she doesn't know is if she had the stent placed then.
No evidence of UTI per urine analysis
Continue tamsulosin
Urology evaluation appreciated. Patient to follow-up with [facility]
# Bipolar disease/PTSD/anxiety/ADHD-on duloxetine, Lamictal, Quetiapine and Sertraline as outpatient
Restart sertraline
Continue Klonopin 0.5 mg 3 times daily as needed
# Constipation-Resolved
# Hypertension. Do not restart hydrochlorothiazide. Hold lisinopril
# History of diabetes-diet controlled. Accu-Cheks and sliding scale coverage
# Chronic anemia-low normal iron and [id number]
# Low cortisol level. Cortisol stim test unremarkable
# Sciatica
# Migraines
# History of CVA - with left-sided weakness
# History of Takotsubo cardiomyopathy- No echo here.
# IBS
# History of GI bleed
# DVT prophylaxis-Lovenox
# DNR per discussion with
Discussed with nursing
Sat in the chair this am
Discussed with nephrology at bedside
Anticipated Discharge: Within 24 hours
Subjective/Interval History
-
Date of Service: March 08, 2024
Objective Data
-
Labs:
Laboratory Results
03/08/24
09:51
Sodium 136
Potassium 4.3
Chloride 96 L
Carbon Dioxide 26
BUN 14
Creatinine 1.0
Glucose 174 H
Calcium 9.9
Vital Signs:
Vital Signs
Temp Pulse Resp BP Pulse Ox
98.4 F 99 20 127/66 92
03/08/24 12:44 03/08/24 12:44 03/08/24 12:44 03/08/24 12:44 03/08/24 12:44
I&O
03/07/24 03/08/24 03/09/24
06:59 06:59 06:59
Intake Total 240 / 240
Output Total 900 / 900 1150 / 1150
Balance -900 / -900 -910 / -910
[2024-03-08] MEDS: ZOLOFT 50 MG PO (15:54)
--- NOTE | 2024-03-08 16:16 | W.PN.NEPH.PH ---
Today's Communication / Plan
-
observe
Nephro will follow prn
Assessment/Plan
-
IMP:
Hyponatremia
Abdominal pain
U stent with h/o K stone
CVA (Left sided weakness. Left foot drop)
HTN
Hypercholesterolemia
NIDDM
Anxiety, depression, PTSD, ADHD
chronic back pain
Migraines,
Takotsubo cardiomyopathy
IBS,
h/o GI bleeding
Plan:
A/w dysuria, h/o U stent, no UTI noted
U om high 379, U na 72 unclear if SIADH
was on HCTZ, SSRI and duloxetine
sodium better to 136 , maintain FR 48 ounces/day
cortisol low -good response with ACTH stim test
BP was low but improving - holding ACEI
not resume HCTZ in future, ok to resume Sertraline currently
CXR Noted mild pulm edema-low BNP on RA , can dose lasix if needed
U PCR 700mg /gm of cr-need f/u out pt with PCP
follow h/h-decreasing
Discussed with the patient and nursing
d/w primary
BMP in week post d/c with PCP
-
-
Date of Service: March 08, 2024
CC / HPI / ROS
-
Chief Complaint:
hyponatremia
History of Present Illness:
sodium better at 136
bp low overnight but better this pm, resolved constipation
Review of Systems:
no n/v
no cp or sob at rest
Labs
-
Labs:
WBC 7.7 10^3/uL (4.8-10.8) 03/06/24 05:08
RBC 3.31 10^6/uL (4.20-5.40) L 03/06/24 05:08
Hgb 9.8 g/dL (12.0-16.0) L 03/06/24 05:08
Hct 30.1 % (37.0-47.0) L 03/06/24 05:08
Plt Count 223 10^3/uL (130-400) D 03/06/24 05:08
Sodium 136 mmol/L (135-145) 03/08/24 09:51
Potassium 4.3 mmol/L (3.5-5.1) 03/08/24 09:51
Chloride 96 mmol/L (98-107) L 03/08/24 09:51
Carbon Dioxide 26 mmol/L (22-30) 03/08/24 09:51
BUN 14 mg/dl (7-17) 03/08/24 09:51
Creatinine 1.0 mg/dL (0.6-1.0) 03/08/24 09:51
eGFR > 60.00 03/08/24 09:51
Glucose 174 mg/dl (70-99) H 03/08/24 09:51
Calcium 9.9 mg/dl (8.4-10.2) 03/08/24 09:51
Hre-R-Uqqgbqrgxgm Pept 28.3 pg/ml 03/07/24 05:02
Albumin 5.0 g/dl (3.5-5.0) 03/05/24 18:39
Physical Exam
-
Vital Signs:
Vital Signs
Temp Pulse Resp BP Pulse Ox
98.4 F 99 20 127/66 92
03/08/24 12:44 03/08/24 12:44 03/08/24 12:44 03/08/24 12:44 03/08/24 12:44
Cardiovascular:: Regular rate and rhythm
Respiratory:: Bilateral: Rhonchi (likely upper airway)
Lung Excursion:: Normal
Abdomen:: Nontender and Soft
Extremity Edema:: None: Bilateral:
Alonso Catheter: No
[2024-03-08] MEDS: LOVENOX 40 MG SC (17:07)
[2024-03-08] MEDS: KLONOPIN 0.5 MG PO (19:46)
[2024-03-08] MEDS: SEROQUEL 200 MG PO (22:12)
[2024-03-08] MEDS: SEROQUEL 50 MG PO (22:13)
[2024-03-09 03:42] VITALS: BP 104/59
[2024-03-09 07:10] VITALS: BP 120/67
--- NOTE | 2024-03-09 07:19 | W.PN.URO.CBU ---
Today's Communication / Plan
-
fit for discharge urologically
pt to f/u with her urologist at [facility] to address ureteral stent
Assessment / Plan
-
Retained Right Ureteral Stent -- details are currently unknown
Urinary Frequency -- not unexpected in presence of chronic ureteral stent
Hyponatremia of non-urologic origin -- resolved
Diagnosis
-
Date of Service: March 09, 2024
-
Patient Diagnosis:
Retained Right Ureteral Stent -- details are currently unknown
Urinary Frequency -- not unexpected in presence of chronic ureteral stent
Hyponatremia of non-urologic origin -- resolved
Objective
-
Vital Signs
Temp Pulse Resp BP Pulse Ox
97.6 F 71 18 104/59 95
03/09/24 03:42 03/09/24 03:42 03/09/24 03:42 03/09/24 03:42 03/09/24 03:42
Intake and Output
03/08/24 03/09/24 03/10/24
06:59 06:59 06:59
Intake Total 240 / 240 1320 / 1320
Output Total 1150 / 1150
Balance -910 / -910 1320 / 1320
Intake:
Oral fluids 240 / 240 1320 / 1320
Output:
Urine, Voided 1150 / 1150
Other:
Number of approximated MODERATE 1 1
amounts of urine
Number of approximated LARGE 1
amounts of urine
How many times incontinent 1
MODERATE amount urine
Laboratory Results
03/06/24 05:08
03/08/24 09:51
Physical Exam
-
General - well developed, well nourished, no acute distress
Chest - clear bilaterally
Abdomen - soft, non-tender, positive bowel sounds, no CVAT, no incisional pain or distention
Genitalia - normal
Rectal - normal
Skin - warm & dry with no rash
Neuro - AOx3, no motor deficits
Extremities - no clubbing, no cyanosis, no edema
Incision - clean, dry
Dressing - clean, dry, intact
[2024-03-09] MEDS: FLOMAX 0.4 MG PO (08:18)
[2024-03-09] MEDS: NEURONTIN 600 MG PO ×4 (08:19→21:44)
[2024-03-09] MEDS: ZOLOFT 50 MG PO (08:20)
[2024-03-09] MEDS: COLACE PO ×3 (08:20→21:43)
[2024-03-09] MEDS: ROXICODONE 5 MG PO ×2 (08:21→15:12)
[2024-03-09] MEDS: SENOKOT PO ×3 (08:23→21:43)
[2024-03-09] MEDS: VITAMIN B-12 1000 MCG PO (08:24)
[2024-03-09] MEDS: LAMICTAL 200 MG PO (08:25)
[2024-03-09] MEDS: FEOSOL 325 MG PO (08:25)
[2024-03-09] MEDS: CYMBALTA DELAYED RELEASE 30 MG PO (08:25)
[2024-03-09] MEDS: NICODERM TRANSDERMAL 14 MG TRANSDERM (08:30)
[2024-03-09] MEDS: DESENEX/MITRAZOL/ZEASORB 1 APPLIC TOPICAL (08:41)
[2024-03-09] MEDS: ADDERALL 20 MG PO ×2 (09:33→18:05)
--- NOTE | 2024-03-09 10:53 | CM ---
Addendum entered by Aura Castellanos RN 03/09/24 16:04:
Spoke with Duyen Sams. She said she saw in chart pt had suicide attempt. Pt son and deny suicide attempt.Duyen notified.
Spoke with pt who has aphasia she said that she wants to go home first then go to [facility]. Explained to pt that the easiest way to get skilled rehab is from hospital . Pt became upset . Informed of above .Duyen /Flaquita and aware.
PLAN To [facility] if pt consents
Original Note:
LM with spouse. No call back .
Spoke with son Yonny [phone] he said his mom has not had an suicide attempts. She does follow with [facility] for psychiatric follow up.
Spoke with Duyen at [facility] . Resent updated PT OT jorge. she will evaluate pt and return determination.Pt will be possible shelter after skilled short term.
Instructed son to review Medicare.gov for other SNF if [facility] can not accept.
PLAN To SNf after located
[2024-03-09 11:10] VITALS: BP 146/92
--- NOTE | 2024-03-09 14:50 | W.PN.HOSP.TC ---
Today's Communication/Plan
-
CBC
Discharge planning
Assessment / Plan
Assessment / Plan
63-year-old female presented to the hospital with urinary frequency. 10-12 times a day. and she was really weak. She needs help normally to get around the house with 's help. She was very very weak.
CT abdomen and [id number]-stable peripherally calcified splenic cyst. Right-sided internal double-J stent. The right proximal ureter adjacent to the ureteral stent there is a 7 x 6 mm ureteral calculus. No hydronephrosis. Slightly distended
extrarenal pelvis bilaterally. Few small right renal cyst. No bladder calculus. Constipation with moderate colonic fecal burden
Awake and alert
Patient has dysphagia and not able to communicate well
Cardiovascular system S1-S2 appreciated
Chest clear to auscultation
Abdomen mild lower quadrant discomfort and tenderness
Left-sided hemiparesis
No lower extremity edema
# Hyponatremia
Urine osmolality 390 and sodium 72 consistent with SIADH
Possibly secondary to medicines
Started hypertonic saline in the ER
Normal TSH.
Low cortisol-check cortisol stimulation test
Fluid restriction
Hold hydrochlorothiazide and restart sertraline
Nephrology following
# Abdominal pain with urinary stent
Possibly pain is secondary to constipation. Treat constipation
Details of right sided - stent unclear.
not sure either.
She was at [facility] a year ago . But she doesn't know is if she had the stent placed then.
No evidence of UTI per urine analysis
Continue tamsulosin
Urology evaluation appreciated. Patient to follow-up with [facility]
# Bipolar disease/PTSD/anxiety/ADHD-on duloxetine, Lamictal, Quetiapine and Sertraline as outpatient
Restart sertraline
Continue Klonopin 0.5 mg 3 times daily as needed
# Constipation-Resolved
# Hypertension. Do not restart hydrochlorothiazide. Hold lisinopril
# History of diabetes-diet controlled. Accu-Cheks and sliding scale coverage
# Chronic anemia-low normal iron and [id number]
# Low cortisol level. Cortisol stim test unremarkable
# Sciatica
# Migraines
# History of CVA - with left-sided weakness
# History of Takotsubo cardiomyopathy- No echo here.
# IBS
# History of GI bleed
# Smoker - Cessation counselling.
# DVT prophylaxis-Lovenox
# DNR per discussion with
Discussed with nursing
Discussed with patient's and son on the phone. They are concerned that now patient is backing off from going to rehab. She was agreeable before. I am not sure if smoking is the reason.
She has aphasia and is very difficult to understand her. She has not expressed any wish or any suicidal ideations to me. Son and patient's both deny that she had expressed any suicidal ideation at home. Rehab might be referring to
old notes on the chart?
I have requested psychiatric evaluation to see if the patient can make decisions for her.
Anticipated Discharge: Within 24 hours
Subjective/Interval History
-
Date of Service: March 09, 2024
Objective Data
-
Vital Signs:
Vital Signs
Temp Pulse Resp BP Pulse Ox
97.3 F 105 18 146/92 95
03/09/24 11:10 03/09/24 11:10 03/09/24 11:10 03/09/24 11:10 03/09/24 11:10
I&O
03/08/24 03/09/24 03/10/24
06:59 06:59 06:59
Intake Total 240 / 240 1320 / 1320
Output Total 1150 / 1150
Balance -910 / -910 1320 / 1320
--- NOTE | 2024-03-09 14:58 | PN.CDI ---
Addendum entered and electronically signed by Hermann Kay MD 03/10/24 22:40:
Documentation is complete at this time.
Original Note:
CDI
- -
CDI:
Physician Documentation Request
Admit Date: 03/06/24 01:27
Dear Doctor Rahul,
Patient is being treated for low sodium.
H&P states 'she is euvolemic...'
Hospitalist progress note states 'Urine osmolality 390 and sodium 72 consistent with SIADH'
Nephrology, who was consulted for hyponatremia, states 'U om high 379, U na 72 unclear if SIADH '
Could you please clarify the diagnosis associated with low sodium ?
Hyponatremia
SIADH
Other
Use of terms such as suspected, likely, concern for, or probable (associated with a specific diagnosis that is being evaluated, monitored, or treated as if it exists) are acceptable and can be coded in the inpatient setting, when documented at the
time of discharge.
Thank you,
Socorro Huff RN, BSN
CDI Specialist
tiger text
Please use your independent medical judgment in providing your response.
[2024-03-09 15:10] VITALS: BP 141/76
[2024-03-09 17:53] LABS: Hematocrit 32.5 % (37.0-47.0); Hemoglobin 10.9 g/dL (12.0-16.0); Mean Corp Hgb Conc. 33.5 g/dL (33.0-37.0); Mean Corpuscular Hgb 30.4 pg (27.0-31.0); Mean Corpuscular Volume 90.8 fL (81.0-99.0); Mean Platelet Volume 8.1 fL (7.4-10.4); Platelet Count 278 10^3/uL (130-400); Red Blood Cell Count 3.58 10^6/uL (4.20-5.40); Red Cell Dist. Width 13.7 % (11.5-14.5); White Blood Cell Count 10.8 10^3/uL (4.8-10.8)
[2024-03-09] MEDS: LOVENOX 40 MG SC (18:03)
[2024-03-09 19:35] VITALS: BP 132/74
[2024-03-09] MEDS: SEROQUEL 200 MG PO (21:44)
[2024-03-09] MEDS: SEROQUEL 50 MG PO (21:44)
[2024-03-09] MEDS: KLONOPIN 0.5 MG PO (21:45)
[2024-03-09] MEDS: DESENEX/MITRAZOL/ZEASORB TOPICAL (22:05)
[2024-03-09 23:35] VITALS: BP 98/62
[2024-03-10 03:40] VITALS: BP 117/57
[2024-03-10 07:10] VITALS: BP 139/69
[2024-03-10] MEDS: NICODERM TRANSDERMAL 14 MG TRANSDERM (08:59)
[2024-03-10] MEDS: CYMBALTA DELAYED RELEASE 30 MG PO (09:00)
[2024-03-10] MEDS: NEURONTIN 600 MG PO ×2 (09:00→12:47)
[2024-03-10] MEDS: FLOMAX 0.4 MG PO (09:01)
[2024-03-10] MEDS: ZOLOFT 50 MG PO (09:01)
[2024-03-10] MEDS: FEOSOL 325 MG PO (09:03)
[2024-03-10] MEDS: LAMICTAL 200 MG PO (09:03)
[2024-03-10] MEDS: VITAMIN B-12 1000 MCG PO (09:04)
[2024-03-10] MEDS: ADDERALL 20 MG PO (09:05)
--- NOTE | 2024-03-10 09:22 | W.PN.HOSP.TC ---
Today's Communication/Plan
-
Medically stable for discharge
Assessment / Plan
Assessment / Plan
63-year-old female presented to the hospital with urinary frequency. 10-12 times a day. and she was really weak. She needs help normally to get around the house with 's help. She was very very weak.
CT abdomen and [id number]-stable peripherally calcified splenic cyst. Right-sided internal double-J stent. The right proximal ureter adjacent to the ureteral stent there is a 7 x 6 mm ureteral calculus. No hydronephrosis. Slightly distended
extrarenal pelvis bilaterally. Few small right renal cyst. No bladder calculus. Constipation with moderate colonic fecal burden
Awake and alert
Patient has dysphagia and not able to communicate well
Cardiovascular system S1-S2 appreciated
Chest clear to auscultation
Abdomen mild lower quadrant discomfort and tenderness
Left-sided hemiparesis
No lower extremity edema
# Hyponatremia
Urine osmolality 390 and sodium 72 consistent with SIADH
Possibly secondary to medicines
S/P hypertonic saline in the ER
Normal TSH.
Normal cortisol stimulation test
Fluid restriction
Hold hydrochlorothiazide and restarted sertraline
# Abdominal pain with urinary stent
Possibly pain is secondary to constipation. Treat constipation
Details of right sided - stent unclear.
not sure either.
She was at [facility] a year ago . But she doesn't know is if she had the stent placed then.
No evidence of UTI per urine analysis
Continue tamsulosin
Urology evaluation appreciated. Patient to follow-up with [facility]
# Bipolar disease/PTSD/anxiety/ADHD-on duloxetine, Lamictal, Quetiapine and Sertraline as outpatient
Restarted sertraline
Continue Klonopin 0.5 mg 3 times daily as needed
# Constipation-Resolved
# Hypertension. Do not restart hydrochlorothiazide. Hold lisinopril- BP stable
# History of diabetes-diet controlled. Accu-Cheks and sliding scale coverage
# Chronic anemia-low normal iron and [id number]-[id number]
# Low cortisol level. Cortisol stim test unremarkable
# Sciatica
# Migraines
# History of CVA - with left-sided weakness
# History of Takotsubo cardiomyopathy- No echo here.
# IBS
# History of GI bleed
# Smoker - Cessation counselling.
# DVT prophylaxis-Lovenox
# DNR per discussion with
Discussed with nursing
Discussed with patient's and son at bedside
She was agreeable to go to [facility] for short-term rehab and then to transition to long-term.
However she wants to go home for 2 weeks. is not sure if she will go after that. He states that he cannot take care of her at home. Also that if she goes directly from the hospital she gets the intense therapy with a short-term rehab also
which she is not agreeing.
She has a communication barrier because of her aphasia.
Await psychiatry evaluation and also patient has a televisit with her psychiatry today ?
Anticipated Discharge: Today
Subjective/Interval History
-
Date of Service: March 10, 2024
Objective Data
-
Vital Signs:
Vital Signs
Temp Pulse Resp BP Pulse Ox
98.0 F 89 18 139/69 93
03/10/24 07:10 03/10/24 07:10 03/10/24 07:10 03/10/24 07:10 03/10/24 07:10
I&O
03/09/24 03/10/24 03/11/24
06:59 06:59 06:59
Intake Total 1320 / 1320 1320 / 1320
Output Total 600 / 600
Balance 1320 / 1320 720 / 720
[2024-03-10] MEDS: COLACE PO (09:40)
[2024-03-10] MEDS: DESENEX/MITRAZOL/ZEASORB TOPICAL (09:40)
[2024-03-10] MEDS: SENOKOT PO (09:41)
[2024-03-10 11:16] VITALS: BP 120/70
--- NOTE | 2024-03-10 11:58 | W.DS.TRANS ---
DC Summary - Yeast Supervisor
-
Discharge Instructions:
Discharge Diagnosis/Procedures Hyponatremia
Urinary stent
Constipation
Bipolar disease
PTSD
Anxiety
Hypertension
Diabetes-diet controlled
Chronic anemia history of CVA with left-sided
weakness
Migraines
Sciatica
History of GI bleed
Diet Diabetic, Carb Controlled
Activity As tolerated,With assistance
Driving Restrictions No driving
Blood Work BMP 1 week
Other Services PT,OT
Instructions:
Stand-Alone Forms:
Changes to Home Medications: Yes
Discharge Medications:
DC Medications w/original date entered in [facility]
lamotrigine 200 mg tablet 200 mg PO DAILY MOOD STABILIZATION 01/17/21
dextroamphetamine-amphetamine 20 mg tablet 20 mg PO BID Neurological Condition 03/05/24
duloxetine 30 mg capsule,delayed release 30 mg PO DAILY Mental Health 03/05/24
gabapentin 600 mg tablet 600 mg PO QID Pain 03/05/24
melatonin 3 mg tablet 3 mg PO HS Sleep 03/05/24
methocarbamol 500 mg tablet 500 mg PO DAILYPRN PRN muscle spasms 03/05/24
quetiapine 200 mg tablet 200 mg PO HS Neurological Condition 03/05/24
quetiapine 25 mg tablet 50 mg PO HS Neurological Condition 03/05/24
sertraline 50 mg tablet 50 mg PO DAILY Mental Health 03/05/24
clonazepam 0.5 mg tablet 0.5 mg PO TIDPRN PRN anxiety #6 tabs 03/10/24
cyanocobalamin (vitamin B-12) 1,000 mcg tablet 1,000 mcg PO DAILY Supplement #0 tabs 03/10/24
docusate sodium 100 mg capsule 100 mg PO BID Constipation #0 caps 03/10/24
ferrous sulfate 325 mg (65 mg iron) tablet (FeroSul) 325 mg PO DAILY anemia #0 tabs 03/10/24
lisinopril 40 mg tablet 10 mg (1/4 x 40 mg) PO DAILY Hold if BP below 130 mm hg #0 tabs 03/10/24
nicotine 14 mg/24 hr daily transdermal patch 14 mg transdermal DAILY Smoking cessation #0 ea 03/10/24
oxycodone 5 mg tablet 5 mg PO Q4HPRN PRN moderate pain #10 tabs 03/10/24
polyethylene glycol 3350 17 gram oral powder packet 17 g PO DAILY Constipation #0 ea 03/10/24
sennosides 8.6 mg tablet (Senna Laxative) 17.2 mg (2 x 8.6 mg) PO HS Constipation #0 tabs 03/10/24
Home Medication Changes
HCTZ stopped. Percocet stopped
Senokot, oxycodone, nicotine, MiraLAX, new
Lisinopril dose decreased to 10 mg
B12 is new
Pending Results: No
--- NOTE | 2024-03-10 11:59 | W.PN.UPDATE ---
Addendum entered and electronically signed by Hermann Kay MD 03/10/24 12:02:
Dictation- [id number]
Original Note:
Update Note
Progress Note Update
Per discussion with case management patient is agreeable to go to [facility] for rehab
More than 30 minutes spent in discharge including
Final examination of the patient
Summarizing hospital stay
Instructions for continuing care to all relevant caregivers
Preparation of discharge records, prescriptions, and referral forms
Total time spent (in minutes): 37 min
--- NOTE | 2024-03-10 12:40 | CM ---
Spoke with son and pt in room. Pt is aphagic due to stroke in hx.
After talking to pt determines that pt wants to go home get her things together then to drive her to [facility] at 5 pm tonight.
Reviewed above Duyen accepted pt today at 5 pm.
Axel Geller thought she saw note saying pt had a suicide attempt. Pt son and deny hx.Duyen notified.
IMM reviewed with all 3 IMM signed on chart.IMM copy given.
Spoke with Duyen Sams. She said she saw in chart pt had suicide attempt. Pt son and deny suicide attempt.Duyen notified.
Axel sevilla
report [phone]
fax [phone]
[facility]
== END 2024-03-10 14:19 | DRG 641 ==
LOC: 3 WEST ACU 01:27
PROVIDERS: Emergency Medicine; ADMITTING PHYSICIAN Internal Medicine; ATTENDING PHYSICIAN Hospitalist; CONSULT PHYSICIAN Specialist; EMERGENCY PHYSICIAN Student in an Organized Health Care Education/Training Program; FAMILY PHYSICIAN Family Medicine; OTHER PHYSICIAN Internal Medicine
DX: E87.1 Hypo-osmolality and hyponatremia (principal); F31.60 Bipolar disorder, current episode mixed, unspecified; I69.354 Hemiplegia and hemiparesis following cerebral infarction affecting left non-dominant side; F17.200 Nicotine dependence, unspecified, uncomplicated; K58.9 Irritable bowel syndrome, unspecified; I10 Essential (primary) hypertension; M54.30 Sciatica, unspecified side; Z66 Do not resuscitate; F41.9 Anxiety disorder, unspecified; F43.10 Post-traumatic stress disorder, unspecified; E11.9 Type 2 diabetes mellitus without complications; D64.9 Anemia, unspecified; G43.909 Migraine, unspecified, not intractable, without status migrainosus; I69.320 Aphasia following cerebral infarction
CPT/HCPCS: 51798; 71046; 74177; 80048; 80053; 81003; 81015; 82533; 82570; 82607; 82728; 83540; 83550; 83880; 83935; 84156; 84295; 84300; 84443; 85025; 85027; 97163; 97167; 97530; 97535; 99285; Q9967